=== PATIENT | female | born 1970 | race Caucasian/White ===

== ENCOUNTER 2022-04-17 18:59 | Emergency (ER) | payer MEDICAID, SELFPAY ==
[2022-04-17 19:14] VITALS: BP 145/89; PULSE 84; RESP 18; TEMP 36.6; O2SAT 99; BMI 23.9
--- NOTE | 2022-04-17 19:39 | ED_ITS ---
HPI - Eye Problem General Date Seen: 04/17/22 Chief complaint: Eye Problems Stated complaint: OBJECT IN LEFT EYE Time Seen by Provider: 04/17/22 19:16 Source: patient Mode of arrival: ambulatory Limitations: no limitations History of Present Illness HPI Narrative: Patient is a 52-year-old female who has been under incredible stress recently, she presents here with a foreign body sensation that something went in her left eye. This occurred a few hours ago when she was out walking her dog around back ill. She tried pulling or eyelid up and down, but feeling persisted, she did not see anything in her eye, she got her significant other to look in there but he said it just looked gross. She has been under lot of pressure with the recently of her mother, and her father in early part of 2021. She also has some issues with her son. She has had some issues and she has been to the Urgent Care and the ER at [facility] with feeling that there is something on her skin. No one has been able to diagnose anything on her skin. But she is now feeling that this may be some sort of psychiatric her psychogenic issue that she is developed. She is now recently undergone counseling, is on board with medication management for this. chief complaint: eye pain Onset (ago): hour(s) Onset description: sudden Duration: constant Location: left eye Eye Symptoms: burning Place: home Mechanism: none Severity: moderate If Pain, Quality: sharp Treatments Prior to Arrival: none Related Data Home Medications Medication Instructions Recorded Confirmed lisinopril 20 mg tablet 20 mg PO DAILY 02/04/22 04/17/22 metoprolol succinate 25 mg ea PO 02/04/22 03/28/22 tablet,extended release 24 hr tramadol 50 mg tablet 50 mg PO Q8H PRN 03/28/22 04/17/22 cyclobenzaprine 5 mg tablet 5 mg PO Q8H PRN 04/17/22 04/17/22 gabapentin 300 mg capsule 300 mg PO DAILY 04/17/22 04/17/22 Previous Rx's Medication Instructions Recorded hydroxyzine HCl 25 mg tablet 25 mg PO TID PRN itching #10 tabs 03/28/22 Allergies Allergy/AdvReac Type Severity Reaction Status Date / Time cefuroxime [From Ceftin] Allergy Severe Seizure Verified 04/17/22 19:20 vancomycin Allergy Mild Hives Verified 03/28/22 19:09 Review of Systems Status of ROS: Reports: 6 or more systems reviewed and unremarkable except as noted in History and below PFSH FOR[facility], [facility] Social History Smoking Status: Current every day smoker Exam Narrative: Exam Narrative: Patient is a very nice lady in no apparent distress, her eyes bilaterally show no redness, there is no lid swelling, her pupils equal round reactive, fundi normal, tetracaine was used in her left eye, this did not take away the sensation, I then used a slit lamp, and was unable to see any evidence of any a corneal abrasion injury to the eye, upper lid is everted and normal lower lid is normal too. Const: Vital Signs, click to edit/add: Vital Signs - 24 hr 04/17/22 19:14 Temperature 97.9 F Pulse Rate [Right Pulse Oximeter] 84 Respiratory Rate 18 Blood Pressure [Ri ght Upper Arm] 145/89 H Pulse Oximetry 99 Oxygen Delivery Me thod Room Air Documenting provider has reviewed patient's vital signs: yes Course Vital Signs Vital signs: Initial Vital Signs Temperature 97.9 F 04/17/22 19:14 Temperature Source Temporal Artery Scan 04/17/22 19:14 Pulse Rate 84 04/17/22 19:14 Respiratory Rate 18 04/17/22 19:14 Blood Pressure 145/89 H 04/17/22 19:14 Blood Pressure Mean 107 04/17/22 19:14 Blood Pressure Position Sitting 04/17/22 19:14 Pulse Oximetry 99 04/17/22 19:14 Oxygen Delivery Method 04/17/22 19:14 Vital Signs Temperature 97.9 F 04/17/22 19:14 Pulse Rate 84 04/17/22 19:14 Respiratory Rate 18 04/17/22 19:14 Blood Pressure 145/89 H 04/17/22 19:14 Pulse Oximetry 99 04/17/22 19:14 Oxygen Delivery Method 04/17/22 19:14 Temperature 97.9 F 04/17/22 19:14 Pulse Rate 84 04/17/22 19:14 Respiratory Rate 18 04/17/22 19:14 Blood Pressure 145/89 H 04/17/22 19:14 Pulse Oximetry 99 04/17/22 19:14 Oxygen Delivery Method 04/17/22 19:14 MDM - Eye Problem Differential Diagnosis Differential diagnosis: Likely corneal abrasion, conjunctivitis, acute iritis, hyphema, periorbital cellulitis, subconjunctival hemorrhage, glaucoma, corneal ulcer and ruptured globe Medical Records Attestation: I reviewed the patient's medical records. Discharge Plan Discharge Clinical Impression: Sensation of foreign body in eye Patient Disposition: Home, Self-Care Condition: Stable Instructions: Eye Pain (ED) Additional Instructions: Home, rest, reassurance given, follow-up with primary care continue ongoing counseling. Prescriptions: No Action tramadol 50 mg tablet 50 mg PO Q8H PRN hydroxyzine HCl 25 mg tablet 25 mg PO TID PRN (Reason: itching) Qty: 10 0RF metoprolol succinate 25 mg tablet extended release 24 hr PO Label Comments: TAKE 1 TABLET BY MOUTH DAILY lisinopril 20 mg tablet 20 mg PO DAILY Label Comments: TAKE 1 TABLET BY MOUTH DAILY cyclobenzaprine 5 mg tablet 5 mg PO Q8H PRN gabapentin 300 mg capsule 300 mg PO DAILY Follow Up/Referrals: Marilu Tiwari PA-C [Primary Care Provider] - Stand Alone Forms: [facility] Info Instructions Procedures Eye Procedure Left: Location: cornea Topical anesthetic used: tetracaine Evidence of corneal penetration: No Technique: cotton tip swab Procedure performed under: direct visualization with magnification and slit-lamp Post-procedure medication: topical anesthetic Patient tolerated procedure: well and no complications
[2022-04-17] MEDS: TETRACAINE 0.5% OPHTH 2 DROP EYE-LEFT (19:45)
[2022-04-17] MEDS: FLUORESCEIN SODIUM TOPICAL STRIP 1 STRIP EYE-LEFT (19:45)
[2022-04-17 20:03] VITALS: BP 154/84; PULSE 84; RESP 18; TEMP 36.6; O2SAT 99
[2022-04-17 20:04] VITALS: BP 154/84; PULSE 84; RESP 18; TEMP 36.6
== END 2022-04-17 20:05 | disposition home or self-care (01) ==
PROVIDERS: Emergency Provider Family Medicine; PCP Physician Assistant Medical
DX: H57.12 Ocular pain, left eye (principal)
CPT/HCPCS: 99283; A9270

== ENCOUNTER 2023-02-25 09:09 | Outpatient (CLI) | payer MEDICAID, SELFPAY ==
--- NOTE | 2023-02-25 09:30 | CRLHL7_ITS ---
For Patients: As a result of the Century Cures Act, medical imaging exams and procedure reports are released immediately into your electronic medical record. You may view this report before your referring provider. If you have questions, please contact your health care provider. INDICATION: Dysphagia. Patient had lower cervical spine fusion and subsequently developed symptoms. Patient is also a smoker. Recent ENT evaluation with laryngoscope demonstrated fullness of the prevertebral soft tissues. COMPARISON: none TECHNIQUE: A CT volumetric acquisition was performed of the neck during intravenous infusion of 62 cc Isovue 370 nonionic intravenous contrast. Please note that all CT scans at this facility use dose modulation, iterative reconstruction, and/or weight-based dosing when appropriate to reduce radiation dose to as low as reasonably achievable. FINDINGS: There is mildly heterogeneous fullness involving the retropharyngeal soft tissues extending over a length of 3.5 cm and measuring 3.3 x 1.6 cm in transverse dimensions, corresponding to the area visualized during laryngoscope and also visualized during today`s swallowing study. This is at the level of C2-C4 and is above the fusion hardware which is at C5 through C7. Therefore, this is likely not associated with cervical spine surgery. No drainable abscess. No vertebral body fracture. Adenoid tonsillar tissue is not hypertrophied. The salivary glands are unremarkable. No enlarged cervical lymph nodes are present. The epiglottis is normal. Normal soft palate. Pneumatosis of the right temporal bone incidentally noted. Mastoid air cells and middle ear cavity is normal. Sinuses clear. Vallecula and piriform sinuses are clear. Normal thyroid. Lung apices are clear. IMPRESSION: Lobular heterogeneous fullness of the retropharyngeal soft tissues measuring 3.5 x 3.3 x 1.6 cm centered at the C2-C4 level, above the fusion at C5-7. This is concerning for an underlying lesion such as squamous cell carcinoma and recommend biopsy. No adenopathy. Please note that all CT scans at this facility use dose modulation, iterative reconstruction, and/or weight-based dosing when appropriate to reduce radiation dose to as low as reasonably achievable. Dictated by Roshan Vizcarra MD @ 02/25/2023 3:14:45 PM (Electronically Signed)
--- NOTE | 2023-02-25 10:15 | CRLHL7_ITS ---
For Patients: As a result of the Century Cures Act, medical imaging exams and procedure reports are released immediately into your electronic medical record. You may view this report before your referring provider. If you have questions, please contact your health care provider. INDICATION: Dysphagia TECHNIQUE: Modified barium swallow. Fluoroscopic time 75 seconds. COMPARISON: CT neck same day. FINDINGS/IMPRESSION: There is prevertebral soft tissue swelling at the upper cervical spine, above the cervical fusion hardware. There is some mass effect upon the posterior oropharynx related to the soft tissue swelling. No aspiration or penetration. No obstruction. Please see CT report for further details. Dictated by Roshan Vizcarra MD @ 02/25/2023 1:09:57 PM (Electronically Signed)
== END 2023-02-25 09:10 | disposition home or self-care (01) ==
PROVIDERS: Visit Provider Physician Assistant
DX: R13.10 Dysphagia, unspecified (principal)
CPT/HCPCS: 70491; 74230; 92611; Q9967

== ENCOUNTER 2023-08-05 18:01 | Emergency (ER) | payer MEDICAID, SELFPAY ==
[2023-08-05 18:12] VITALS: BP 105/67; PULSE 96; RESP 18; TEMP 37.2; O2SAT 99; BMI 17.0
--- NOTE | 2023-08-05 18:19 | ED_ITS ---
HPI - General Adult General Time Seen by Provider: 18:19 Date Seen: 08/05/23 Chief complaint: Unspecified Complaint, Adult Stated complaint: PCP ref for fluids-cancer pt Time Seen by Provider: 08/05/23 18:03 Source: patient and RN notes reviewed Mode of arrival: ambulatory Limitations: no limitations History of Present Illness HPI narrative: This 53-year-old female is coming in with concern needing IV fluids. Earlier today her blood pressure was 70 over 50, she states she was asymptomatic, was not dizzy or lightheaded. She is not feeling dizziness or lightheadedness now. 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 She does have a feeding tube in. Her physician told her to come in to get some IV fluids. She is not coughing, no concern for any active infection. She has had no fevers, no chills. Two weeks ago she states she had dehydration with active C difficile infection, is currently on antibiotics for that, had hypokalemia in hypo magnesemia at the time. She is feeling better as far as that, no diarrhea, no abdominal pain, no nausea or vomiting currently. She has only noted a little sore underneath her upper denture in her left mouth where the denture sits, notes her dentures do not feel like if it is well since she has lost all the weight during her treatment for her cancer. Related Data Home Medications Medication Instructions Recorded Confirmed metoprolol succinate 25 mg 25 mg PO DAILY 02/04/22 04/17/22 tablet,extended release 24 hr benzonatate 100 mg capsule 100 mg PO 3XD 08/05/23 08/05/23 clobetasol 0.05 % topical ointment topical BID 08/05/23 sumatriptan succinate 100 mg tablet 100 mg PO PRN migraine 08/05/23 Allergies Allergy/AdvReac Type Severity Reaction Status Date / Time cefuroxime [From Ceftin] Allergy Severe Seizure Verified 02/25/23 09:39 vancomycin Allergy Mild Hives Verified 02/25/23 09:39 Review of Systems Status of ROS: Reports: 6 or more systems reviewed and unremarkable except as noted in History and below [facility] Medical History History of ovarian cyst ?Z87.42 - Personal history of other diseases of the female genital tract (ICD-10) History of alcohol abuse ?F10.11 - Alcohol abuse, in remission (ICD-10) Cellulitis of nose ?J34.0 - Abscess, furuncle and carbuncle of nose (ICD-10) Methamphetamine abuse ?F15.10 - Other stimulant abuse, uncomplicated (ICD-10) Depression with anxiety ?F41.8 - Other specified anxiety disorders (ICD-10) Migraine ?G43.909 - Migraine, unspecified, not intractable, without status migrainosus (ICD-10) MRSA colonization ?Z22.322 - Carrier or suspected carrier of Methicillin resistant Staphylococcus aureus (ICD-10) HTN (hypertension) ?I10 - Essential (primary) hypertension (ICD-10) History of diverticulitis of colon ?Z87.19 - Personal history of other diseases of the digestive system (ICD-10) Presbyopia ?H52.4 - Presbyopia (ICD-10) Surgical History History of tubal ligation ?Z98.51 - Tubal ligation status (ICD-10) History of right salpingo-oophorectomy ?Z90.79 - Acquired absence of other genital organ(s) (ICD-10) ?Z90.721 - Acquired absence of ovaries, unilateral (ICD-10) History of lumbosacral spine surgery ?Z98.890 - Other specified postprocedural states (ICD-10) History of exploratory laparotomy ?Z98.890 - Other specified postprocedural states (ICD-10) History of elbow surgery ?Z98.890 - Other specified postprocedural states (ICD-10) History of colectomy (2014) ?Z90.49 - Acquired absence of other specified parts of digestive tract (ICD-10) History of cervical spinal arthrodesis (07/07/14) ?Z98.1 - Arthrodesis status (ICD-10) History of carpal tunnel surgery of right wrist ?Z98.890 - Other specified postprocedural states (ICD-10) History of carpal tunnel release of both wrists ?Z98.890 - Other specified postprocedural states (ICD-10) H/O bilateral oophorectomy ?Z90.722 - Acquired absence of ovaries, bilateral (ICD-10) History of appendectomy ?Z90.49 - Acquired absence of other specified parts of digestive tract (ICD- 10) H/O section ?Z98.891 - History of uterine scar from previous surgery (ICD-10) History of cervical spinal surgery ?Z98.890 - Other specified postprocedural states (ICD-10) History of bunionectomy ?Z98.890 - Other specified postprocedural states (ICD-10) Family History Other Lung cancer Mental disorder Thyroid disease Social History Narrative: smoker- 30 years 1pk a day Smoking Status: Current every day smoker What tobacco products do you use: cigarettes How often do you have a drink containing alcohol: never How often do you have six or more drinks on one occasion: Never AUDIT-C Alcohol total score: 0 Non-prescribed substance use: denies use Exam Const: Vital Signs, click to edit/add: Vital Signs - 24 hr 08/05/23 18:12 Temperature 98.9 F Pulse Rate [Pulse Oximeter] 96 Respiratory Rate 18 Blood Pressure [Ri ght Upper Arm] 105/67 Pulse Oximetry 99 Oxygen Delivery Me thod Room Air This 53-year-old female is alert, interactive, no apparent distress. Sclera clear, conjugate gaze, symmetrical facial function. Oropharynx shows no evidence of any active lesion when she removed her upper denture. It is the left ridge posteriorly where she is feeling some discomfort, I see no evidence of any active lesion or infection at this time. She has some erythematous post radiation changes of her neck but nothing concerning for cellulitis. Lungs are clear, good air entry, somewhat distant breath sounds but no wheezing or crackles. CV with distant heart sounds, sounds regular, 1-2/6 systolic murmur heard faintly upper sternal borders. Abdomen is soft, feeding tube in place, nontender. She is ambulatory into the ED of her own accord. Documenting provider has reviewed patient's vital signs: yes Course Course ED Course: Will place an IV, give her 1 L normal saline. Check baseline labs with a CBC, basic metabolic panel magnesium. Will ensure electrolytes are stable. She has no focus of infection at this time, will see how she feels while she is here, she really is asymptomatic from what she is telling me. She was sent in to receive some IV fluids, thus, do feel obligated to give her a L of normal saline. Given her oral pharyngeal cancer, do feel that she probably does not keep up on daily requirements for oral intake. Reevaluation(s) Time of Reevaluation #1: 20:47 Reevaluation #1: Reviewed with patient that her magnesium is low, she agrees to IV magnesium. Potassium is just slightly low at 3.3, will do some oral down her feeding tube. She is tired but otherwise feeling okay. Do not feel she needs further fluids. Will replace these electrolytes, discharged to home to have her follow up outpatient with her primary. Vital Signs Vital signs: Initial Vital Signs Temperature 98.9 F 08/05/23 18:12 Temperature Source Temporal Artery Scan 08/05/23 18:12 Pulse Rate 96 08/05/23 18:12 Respiratory Rate 18 08/05/23 18:12 Blood Pressure 105/67 08/05/23 18:12 Blood Pressure Mean 79 08/05/23 18:12 Blood Pressure Position Sitting 08/05/23 18:12 Pulse Oximetry 99 08/05/23 18:12 Oxygen Delivery Method Room Air 08/05/23 18:12 Vital Signs Temperature 98.9 F 08/05/23 18:12 Pulse Rate 96 08/05/23 18:12 Respiratory Rate 18 08/05/23 18:12 Blood Pressure 105/67 08/05/23 18:12 Pulse Oximetry 99 08/05/23 18:12 Oxygen Delivery Method Room Air 08/05/23 18:12 Temperature 98.9 F 08/05/23 18:12 Pulse Rate 96 08/05/23 18:12 Respiratory Rate 18 08/05/23 18:12 Blood Pressure 105/67 08/05/23 18:12 Pulse Oximetry 99 08/05/23 18:12 Oxygen Delivery Method Room Air 08/05/23 18:12 Medications Administered Medications: Discontinued Medications Generic Name Dose Route Start Last Admin Trade Name Freq PRN Reason Stop Dose Admin Sodium Chloride 1,000 mls @ 1,000 mls/hr 08/05/23 18:29 08/05/23 20:00 0.9 % Sodium Chloride 1000 Ml IV 08/05/23 19:28 Infused .Q1H VINCE Infusion Magnesium Sulfate/Dextrose 1 gm in 100 mls @ 100 mls/hr 08/05/23 20:47 08/05/23 22:35 Magnesium Sulf 1 G/100 Ml-D5w IVPB 08/05/23 21:46 Infused ONCE ONE Infusion Potassium Bicarbonate 25 meq 08/05/23 20:47 08/05/23 21:05 Potassium Bicarb 25 Meq Effervescent Tab PO 08/05/23 20:48 25 meq ONCE ONE Administration Medical Decision Making Lab Data Lab results reviewed: Yes I reviewed the patient's lab results Labs: Lab Results 08/05/23 Range/Units 18:47 WBC 2.76 L (4.50-11.00) K/uL RBC 2.81 L (4.00-5.20) m/uL Hgb 8.9 L (12.0-16.0) gm/dL Hct 26.7 L (33.0-51.0) % MCV 95 (80-100) fL MCH 32 (26-34) pg MCHC 33 (32-36) gm/dL RDW Coeff of Priya 15.1 (11.5-15.5) % Plt Count 323 (140-440) K/uL Neut % (Auto) 57.2 (42.0-72.0) % Lymph % (Auto) 23.2 (20-44) % [place] % (Auto) 13.4 H (0.0-11.0) % Eos % (Auto) 5.1 (0.0-7.0) % Baso % (Auto) 1.1 (0.0-3.0) % Neut # (Auto) 1.60 L (1.7-7.0) K/uL Lymph # (Auto) 0.60 L (0.90-2.90) K/uL [place] # (Auto) 0.40 (0.00-0.90) K/UL Eos # (Auto) 0.10 (0.00-0.50) K/uL Baso # (Auto) 0.00 (0.00-0.30) K/uL Abs Immat Gran (auto) 0.00 (0.00-0.30) K/uL Imm/Tot Granulo (auto) 0.0 % Sodium 128 L (135-149) mmol/L Potassium 3.3 L (3.6-5.1) mmol/L Chloride 83 L (96-114) mmol/L Carbon Dioxide 40 H (20-32) mmol/L Anion Gap 5 L (7-15) mEq/L BUN 22 (7-30) mg/dL Creatinine 1.4 (0.5-1.5) mg/dL Estimated Creat Clear 30.95 Estimated GFR 45 ml/min Glucose 94 (60-115) mg/dL Calcium 9.2 (8.4-10.6) mg/dL Magnesium 1.3 L (1.5-2.6) mg/dL Discharge Plan Discharge Clinical Impression: History of squamous cell carcinoma, Dehydration, Hypokalemia, Hypomagnesemia Patient Disposition: Home, Self-Care Condition: Stable Instructions: Dehydration (ED) Additional Instructions: Continue with your feedings that you have been doing. Talk to managing medical personnel regarding your feedings in see if there is await increase fluids to help prevent dehydration. If you have further concerns about her clinical status, develops any concerning symptoms, do recommend re-evaluation. Need to have your electrolytes and magnesium rechecked within the next few days, talk to your primary care provider about replacing these or further supplementation. Activity Level: Activity as Tolerated Discharge Diet: Regular Prescriptions: No Action metoprolol succinate 25 mg tablet extended release 24 hr 25 mg PO DAILY Patient Comments: TAKE 1 TABLET BY MOUTH DAILY sumatriptan succinate 100 mg tablet 100 mg PO PRN (Reason: migraine) benzonatate 100 mg capsule 100 mg PO 3XD clobetasol 0.05 % ointment topical BID Follow Up/Referrals: Provider,Not a Local [Primary Care Provider] - Stand Alone Forms: [facility] Info Instructions
[2023-08-05] MEDS: 0.9 % SODIUM CHLORIDE 1000 ml 1,000 ML IV (18:51)
[2023-08-05 19:13] LABS: Basophils Percent Auto 1.1 % (0.0-3.0); Eosinophils Percent Auto 5.1 % (0.0-7.0); Hematocrit 26.7 % (33.0-51.0); Hemoglobin* 8.9 gm/dL (12.0-16.0); Lymphocytes Percent Auto 23.2 % (20-44); Mean Corpuscular HGB Conc 33 gm/dL (32-36); Mean Corpuscular Hemoglobin 32 pg (26-34); Mean Corpuscular Volume 95 fL (80-100); Monocytes Percent Auto 13.4 % (0.0-11.0); Neutrophils Percent Auto 57.2 % (42.0-72.0); Platelet Count* 323 K/uL (140-440); RDW Coefficient of Variation % 15.1 % (11.5-15.5); Red Blood Count 2.81 m/uL (4.00-5.20); White Blood Count* 2.76 K/uL (4.50-11.00)
[2023-08-05 19:22] LABS: Slide Review Reflex No
[2023-08-05 19:27] LABS: Chloride* 83 mmol/L (96-114); Potassium* 3.3 mmol/L (3.6-5.1); Sodium* 128 mmol/L (135-149)
[2023-08-05 19:30] LABS: Anion Gap 5 mEq/L (7-15); Blood Urea Nitrogen* 22 mg/dL (7-30); Carbon Dioxide* 40 mmol/L (20-32); Creatinine* 1.4 mg/dL (0.5-1.5); Est. Creatinine Clearance* 30.95; Estimated Glomerular Filt Rate 45 ml/min; Glucose* 94 mg/dL (60-115)
[2023-08-05 19:31] LABS: Calcium* 9.2 mg/dL (8.4-10.6); Magnesium* 1.3 mg/dL (1.5-2.6)
[2023-08-05] MEDS: POTASSIUM BICARB 25 MEQ EFFERVESCENT TAB PO (21:05)
== END 2023-08-05 22:41 | disposition home or self-care (01) ==
PROVIDERS: Emergency Provider Family Medicine
DX: E86.0 Dehydration (principal); E87.6 Hypokalemia; E83.42 Hypomagnesemia; C15.9 Malignant neoplasm of esophagus, unspecified
CPT/HCPCS: 36415; 80048; 83735; 85025; 96365; 99284; A9270; J3475; J7030